=== PATIENT | female | born 1980 | race Caucasian/White ===

== ENCOUNTER → 2018-02-23 | Day surgery (SDC) | payer OTHER ==
[~2018-02-23] MED LIST: Lactated Ringers 1,000 ML IV SCH; Propofol 200 MG/20 ML SDV IV ONE
--- NOTE | 2018-02-23 19:30 | OR ---
DATE OF OPERATION: 02/23/2018 PREOPERATIVE DIAGNOSIS: 1. GLOBUS SENSATION. 2. GASTROESOPHAGEAL REFLUX DISEASE. POSTOPERATIVE DIAGNOSIS: 1. GLOBUS SENSATION. 2. GASTROESOPHAGEAL REFLUX DISEASE. SURGEON: Nolan Cordova MD PROCEDURE: EGD. ANESTHESIA: M[employer] due to chronic anxiety and reflux. COMPLICATIONS: None. SPECIMEN: None. FINDINGS: Normal full length EGD. RECOMMENDATIONS: Medical followup with Henry Matute PA-C. INDICATIONS: The patient was in to see Henry Matute PA-C for complaints of reflux and a globus sensation in her throat. She does suffer from anxiety and she was sent for EGD. DESCRIPTION OF PROCEDURE: The patient was prepped and draped, placed in the left lateral decubitus position. A lubricated Olympus gastroscope was inserted over a bit and advanced to cricopharyngeus area and easily intubated in the esophagus. The esophageal lining was benign in its entire course. The Z-line was crisp and sharp at 38 cm. I could see no spontaneous reflux. There was no distal esophagitis, stricturing, ulceration, or Perez's changes. The scope was passed into the stomach through the pylorus into the second portion of the duodenum. This and the duodenal bulb were completely benign. The scope was brought back into the stomach and retroflexed. The upper fundus and cardia were completely unremarkable. Throughout the length of the stomach, I could find no signs of any polyps, mass, ulcerations, or any signs of peptic ulcer disease. Air was sucked from the stomach, the scope was brought back up into the distal esophagus. Once again, re-evaluation showed no lesions. Scope was removed without complication. The patient is stable in recovery room. MELVA/ANIL /[id number]
== END ==
LOC: CC.SDS 11:37
PROVIDERS: ATTEND Family Medicine
DX: K21.9 Gastro-esophageal reflux disease without esophagitis (principal); F45.8 Other somatoform disorders
CPT/HCPCS: 36415; 84703; J2704